=== PATIENT | female | born 1980 | race Caucasian/White ===

== ENCOUNTER 2017-05-27 10:38 | Emergency (ER) | payer MEDICAID ==
[2017-05-27 10:38] VITALS: BMI 20.8
[2017-05-27 10:56] VITALS: TEMP 98.3
[2017-05-27 11:40] LABS: BASO # 0.02 K/mm3 (0.0-2.0); BASO % 0.4 % (0.0-3.0); EOS # 0.3 (0.0-0.7); GRAN # 2.44 (1.4-6.5); GRAN % 46.5 % (50.0-68.0); HEMATOCRIT 35.6 % (36.0-48.0); LYMPH # 2.1 (1.2-3.4); LYMPH % 39.5 % (22.0-35.0); MEAN CELL VOLUME 94.2 fl (80.0-105.0); MEAN CORPUSCULAR HGB CONC 32.9 g/dl (31.0-37.0); MEAN PLATELET VOLUME 11.4 fl (7.0-11.0); MONO # 0.5 (0.1-0.6); MONO % 8.6 % (1.0-6.0); RED CELL DISTRIBUTION WIDTH 12.5 % (11.5-14.5); WHITE BLOOD COUNT 5.2 10^3/ul (4.5-11.0)
--- NOTE | 2017-05-27 11:46 | ED PDOC ---
Arrival/HPI - General Historian: Patient EM Caveat: Acuity of Condition - History of Present Illness Time/Duration: Prior to Arrival Symptom Onset: Gradual Symptom Course: Worsening Quality: Tightness, Burning Severity Level: 8 Activities at Onset: Rest Context: Home <Burak Emmanuel - Last Filed: 05/27/17 16:33> <Froylan Cohen Zina - Last Filed: 05/27/17 16:54> - General Chief Complaint: Chest Pain Time Seen by Provider: 05/27/17 10:39 - History of Present Illness Narrative History of Present Illness (Text): Patient is a 36 year old female with past medical history of sarcoidosis and panic attacks presents to the [facility] ED on 05/30/17 with complaints of upper body burning sensations and chest tenderness. Patient states burning sensation started after a muscle spasm that occurred Thursday below left breast. Patient states she normally has muscle spasms associated with her panic attacks but this was different due to the popping sensation she felt afterwards. She states that after the popping sensation she felt a burning sensation in the same region which eventually radiated up her neck and down her arms bilaterally. She also makes note of a cough that has started since the incident which exacerbates the burning sensation as well as pain. Patient denies n/v/d/f/c, headache, shortness of breath, dysuria, lower extremity pain/burning/tingling. 05/27/17 11:54 (Burak Emmanuel) Past Medical History - Provider Review Nursing Documentation Reviewed: Yes - Tetanus Immunization Tetanus Immunization: Unknown - Cardiac Hx Cardiac Disorders: No - Pulmonary Other/Comment: SARCOIDOSIS - Neurological Hx Migraine: Yes - HEENT Hx HEENT Disorder: No - Renal Hx Renal Disorder: No - Endocrine/Metabolic Hx Endocrine Disorders: No - Hematological/Oncological Hx Blood Disorders: No - Integumentary Hx Dermatological Disorder: No - Musculoskeletal/Rheumatological Hx Musculoskeletal Disorders: No - Gastrointestinal Hx Gastrointestinal Disorders: No - Genitourinary/Gynecological Hx Genitourinary Disorders: No - Psychiatric Hx Anxiety: Yes Hx Substance Use: No - Surgical History Hx Tubal Ligation: Yes - Suicidal Assessment Feels Threatened In Home Enviroment: No <Burak Emmanuel - Last Filed: 05/27/17 16:33> Family/Social History - Physician Review Nursing Documentation Reviewed: Yes Family/Social History: Other Smoking Status: Heavy Smoker > 10 Cigarettes Daily Hx Alcohol Use: No Hx Substance Use: No Hx Substance Use Treatment: No <EmmanuelBurak ortiz - Last Filed: 05/27/17 16:33> Family/Social History: Other <VickiFroylan L - Last Filed: 05/27/17 16:54> Narrative Family History (Free Text): Sarcoidosis- Sister and Uncle 05/27/17 12:01 (Burak Emmanuel) Allergies/Home Meds <Burak Emmanuel - Last Filed: 05/27/17 16:33> <VickiFroylan L - Last Filed: 05/27/17 16:54> Allergies/Adverse Reactions: Allergies amoxicillin Allergy (Verified 05/27/17 10:46) RASH latex Allergy (Verified 05/27/17 10:46) RASH Home Medications: Home Meds Medication Instructions Recorded Confirmed Acetaminophen/Butalbital/Caf 2 tab PO Q6 PRN 05/27/17 05/27/17 [Fioricet] Cetirizine HCl [Allergy] 10 mg PO DAILY 05/27/17 05/27/17 Review of Systems - Physician Review All systems were reviewed & negative as marked: Yes - Review of Systems Systems not reviewed;Unavailable: Acuity of Condition <Burak Emmanuel - Last Filed: 05/27/17 16:33> Physical Exam Vital Signs Reviewed: Yes Temperature: Afebrile Blood Pressure: Normal Pulse: Regular Respiratory Rate: Normal Appearance: Positive for: Uncomfortable Pain Distress: Moderate Mental Status: Positive for: Alert and Oriented X 3 - Systems Exam Head: Present: Atraumatic, Normocephalic Extroacular Muscles: Present: EOMI Mouth: Present: Moist Mucous Membranes Respiratory/Chest: Present: Clear to Auscultation, Good Air Exchange, Other ( bilateral chest wall tenderness). No: Wheezes, Rales Cardiovascular: Present: Regular Rate and Rhythm, Normal S1, S2. No: Murmurs Abdomen: Present: Normal Bowel Sounds. No: Tenderness, Distention Neurological: Present: CN II-XII Intact Skin: Present: Warm, Normal Color. No: Rashes, Erythematous, Hot, Laceration, Abrasion Psychiatric: Present: Oriented x 3 <CholoBurak - Last Filed: 05/27/17 16:33> Medical Decision Making Re-evaluation Time: 13:25 (Patient has been re-evlauated after administration of pepcid and maalox, as per patient burning sensation and chest pain have improved. Physical exam: chest wall tenderness has improved) - Lab Interpretations I have reviewed the lab results: Yes Interpretation: All labs normal - RAD Interpretation Head Cleaning Porter: Radiologist - EKG Interpretation Interpreted by ED Physician: Yes Type: 12 lead EKG <Burak Emmanuel - Last Filed: 05/27/17 16:33> <Froylan Cohen - Last Filed: 05/27/17 16:54> ED Course and Treatment: Assessment 36 year old female presenting with chest tightness and upper body burning sensation Plan - CXR - CBC, CMP - EKG - Pepcid, Maalox 05/27/17 12:03 (Burak Emmanuel) 05/27/17 EKG: Ordered, reviewed, and independently interpreted the EKG. Rate : 57 BPM Rhythm : sinus mal cardia Interpretation : No ST-segment elevations or depressions, no T-wave inversions, normal intervals. Comparison : No previous EKG for comparison. Patient Seen With Resident: In agreement with resident note which contains more details about the patient. Patient was seen and evaluated with resident. Came up with plan and treatment together. Patient on exam had tenderness to chest wall. She also had nonproductive cough. CXR negative. EKG normal. Patient improved with medications as per resident note. Patient will follow up with PMD in 1-2days. Her dx is most likely GERD vs Costrochondritis vs MSK. ( Froylan Cohen) - Lab Interpretations Lab Results: 05/27/17 11:30 05/27/17 11:30 Lab Results 05/27/17 11:30: Sodium 142, Potassium 4.1, Chloride 107, Carbon Dioxide 26, Anion Gap 13, BUN 8, Creatinine 0.7, Est GFR ( Amer) > 60, Est GFR (Non- Af Amer) > 60, Random Glucose 82, Calcium 9.5, Total Bilirubin 0.5, AST 21, ALT 23, Alkaline Phosphatase 72, Lactate Dehydrogenase 461, Total Creatine Kinase 106, Troponin I < 0.01, Total Protein 6.9, Albumin 3.9, Globulin 3.0, Albumin/ Globulin Ratio 1.3 05/27/17 11:30: WBC 5.2, RBC 3.78, Hgb 11.7 L, Hct 35.6 L, MCV 94.2, MCH 31.0, MCHC 32.9, RDW 12.5, Plt Count 256, MPV 11.4 H, Gran % 46.5 L, Lymph % (Auto) 39.5 H, Logan % (Auto) 8.6 H, Eos % (Auto) 5.0, Baso % (Auto) 0.4, Gran # 2.44, Lymph # 2.1, Logan # 0.5, Eos # 0.3, Baso # 0.02 - RAD Interpretation Radiology Orders: 05/27/17 11:38 CHEST TWO VIEWS (PA/LAT) [RAD] Stat - Medication Orders Current Medication Orders: Discontinued Medications Al Hydrox/Mg Hydrox/Simethicone (Maalox Plus 30 Ml) 30 ml PO STAT STA Stop: 05/27/17 12:58 Last Admin: 05/27/17 13:08 Dose: 30 ml Famotidine (Pepcid) 40 mg PO STAT STA Stop: 05/27/17 11:45 Last Admin: 05/27/17 11:56 Dose: 40 mg <Burak Emmanuel - Last Filed: 05/27/17 16:33> - PA / BETTING CLERKS / Resident Statement / has reviewed & agrees with the documentation as recorded. MD/ has examined the patient and agrees with the treatment plan. - Scribe Statement The provider has reviewed the documentation as recorded by the Scribe <Froylan Cohen - Last Filed: 05/27/17 16:54> - Scribe Statement 05/27/2017 Desiree Yi Provider Scribe Attestation: All medical record entries made by the Scribe were at my direction and personally dictated by me. I have reviewed the chart and agree that the record accurately reflects my personal performance of the history, physical exam, medical decision making, and the department course for this patient. I have also personally directed, reviewed, and agree with the discharge instructions and disposition. (Froylan Cohen) Disposition/Present on Arrival - Present on Arrival Any Indicators Present on Arrival: No History of DVT/PE: No History of Uncontrolled Diabetes: No Urinary Catheter: No History of Decub. Ulcer: No History Surgical Site Infection Following: None - Disposition Have Diagnosis and Disposition been Completed?: Yes Disposition Time: 13:50 Patient Plan: Discharge <Burak Emmanuel - Last Filed: 05/27/17 16:33> - Disposition Have Diagnosis and Disposition been Completed?: Yes <Dani Cohenhermann Izaguirre - Last Filed: 05/27/17 16:54> - Disposition Diagnosis: Gastroesophageal reflux disease Disposition: HOME/ ROUTINE Condition: GOOD Discharge Instructions (ExitCare): Gastroesophageal Reflux Disease (ED) Additional Instructions: Mere Polk, thank you for letting us take care of you today. You were treated for Gastroesophageal reflux disease. The emergency medical care you received today was directed at your acute symptoms. If you were prescribed any medication, please fill it and take as directed. It may take several days for your symptoms to resolve. Return to the Emergency Department if your symptoms worsen, do not improve, or if you have any other problems. Please contact your primary care physician for follow up. Bring any paperwork you were given at discharge with you along with any medications you are taking to your follow up visit. Our treatment cannot replace ongoing medical care by a primary care provider (PCP) outside of the emergency department. Prescriptions: Aluminum Hydroxide/Magnesium [Maalox Plus 30 ml] 20 ml PO QID #30 udc Famotidine [Pepcid] 20 mg PO BID #28 tab Referrals: Frances Simon MD [Primary Care Provider] - Follow up with primary Forms: [facility] (Amharic)
[2017-05-27 11:49] VITALS: RESP 18; O2SAT 99
[2017-05-27 11:52] LABS: BLOOD UREA NITROGEN 8 mg/dL (7-21); CHLORIDE 107 mmol/L (98-107); GFR AFRICAN-AMERICAN > 60; GLUCOSE,RANDOM 82 mg/dL (70-110); SODIUM 142 mmol/L (132-148)
[2017-05-27 12:36] LABS: ALB/GLOB RATIO 1.3 (1.1-1.8); ALKALINE PHOSPHATASE 72 U/L (38-126); ALT/SGPT 23 U/L (7-56); AST/SGOT 21 U/L (14-36); BILIRUBIN,TOTAL 0.5 mg/dL (0.2-1.3); TOTAL PROTEIN 6.9 g/dL (5.8-8.3)
[2017-05-27 12:37] LABS: CALCIUM 9.5 mg/dL (8.4-10.5); CARBON DIOXIDE 26 mmol/L (21-33); POTASSIUM 4.1 mmol/L (3.6-5.0); TROPONIN I < 0.01 ng/mL
[2017-05-27] MEDS ORDERED: Alum-Mag Hydrox-Simethicone Susp (30 mL) PO STA (12:57)
--- NOTE | 2017-05-27 13:02 | RAD ---
HISTORY: chest pain COMPARISON: No prior. TECHNIQUE: Chest PA and lateral FINDINGS: LUNGS: No active pulmonary disease. PLEURA: No significant pleural effusion identified. No pneumothorax apparent. CARDIOVASCULAR: Normal. OSSEOUS STRUCTURES: No significant abnormalities. VISUALIZED UPPER ABDOMEN: Normal. OTHER FINDINGS: None. IMPRESSION: No active disease.
[2017-05-27 14:07] VITALS: BP 110/74; PULSE 65
--- NOTE | 2017-05-27 17:11 | CARD ---
APPROVED REPORT EKG Measurement Heart [id number] <Conclusion> Sinus bradycardia Otherwise normal ECG
== END 2017-05-27 14:09 | disposition home or self-care (01) ==
LOC: ED 10:38
DX: K21.9 Gastro-esophageal reflux disease without esophagitis (principal)